=== PATIENT | female | born 1940 | race Two or more races ===

== ENCOUNTER 2019-04-24 09:13 | Outpatient (CLI) | payer OTHER ==
[~2019-04-24 09:13] MED LIST: NABUMETONE500 MG PO; PERCOCET 5/3251 TAB PO; SYNTHROID88 MCG
== END 2019-04-24 09:24 | disposition home or self-care (01) ==
LOC: LAB 09:13
DX: D51.1 Vitamin B12 deficiency anemia due to selective vitamin B12 malabsorption with proteinuria (principal); D51.3 Other dietary vitamin B12 deficiency anemia; I10 Essential (primary) hypertension; E03.8 Other specified hypothyroidism; E78.2 Mixed hyperlipidemia; K55.21 Angiodysplasia of colon with hemorrhage; D50.8 Other iron deficiency anemias; D51.8 Other vitamin B12 deficiency anemias; D51.0 Vitamin B12 deficiency anemia due to intrinsic factor deficiency; D68.8 Other specified coagulation defects; E06.3 Autoimmune thyroiditis

== ENCOUNTER 2019-07-03 07:52 | Outpatient (CLI) | payer OTHER | END 2019-07-03 07:58 | disposition home or self-care (01) | LOC: LAB 07:52 | DX: D51.1 Vitamin B12 deficiency anemia due to selective vitamin B12 malabsorption with proteinuria (principal); D51.3 Other dietary vitamin B12 deficiency anemia; D51.0 Vitamin B12 deficiency anemia due to intrinsic factor deficiency; I10 Essential (primary) hypertension; E03.8 Other specified hypothyroidism; E78.2 Mixed hyperlipidemia; K55.21 Angiodysplasia of colon with hemorrhage; D50.8 Other iron deficiency anemias; D51.8 Other vitamin B12 deficiency anemias ==

== ENCOUNTER 2025-02-08 09:13 | Inpatient (IN) | payer OTHER ==
[~2025-02-08] VITALS: Ht 149.9 cm; Wt 63.5 kg
[~2025-02-08 09:13] MED LIST changes: +B-121000 MC1 PO; +BENICAR40 MG PO; +BONIVA3 MG/3 ML IV; +CALTRATE 600 +1 EACH PO; +HYOSCYAMINE0.125 M1 SL; +INTEGRA F CAPS1 EACH PO; +LEVO-T50 MCG PO; +NEURIN; +NORVASC2.5 MG PO; +PEPCID AC20 MG PO; +TRAM1TAB98 PO; +VITAMIN D35000 UNI2 PO
[2025-02-08 09:16] VITALS: BP 145/60
[2025-02-08 09:30] LABS: BASO % 0.4 % (0.1-1.2); EOS # 0.44 (0.04-0.54); EOS % 6.4 % (0.7-7.0); LYMPH # 2.12 (1.18-3.74); LYMPH % 31.0 % (19.3-53.1); MEAN PLATELET VOLUME 9.60 fl (9.4-12.4); MONO # 0.85 (0.24-0.82); NEUT # 3.36 (1.56-6.13); NEUT % 49.4 % (34.0-71.1); RED CELL DISTRIBUTION WIDTH 13.9 % (11.6-14.4)
[2025-02-08 09:34] LABS: MONO % 12.4 % (4.7-12.5); URINE APPEARANCE Clear; URINE BILIRRUBIN Negative (NEGATIVE); URINE BLOOD Negative; URINE COLOR Yellow; URINE GLUCOSE Negative (NEGATIVE); URINE KETONE Negative (NEGATIVE); URINE LEUKOCYTE Trace; URINE NITRATE Negative; URINE PROTEIN Negative (NEGATIVE); URINE UROBILINOGEN 0.2 E.U./dl
[2025-02-08 09:38] LABS: URINE BACTERIA 534.9 uL (0.0-1933); URINE EPITHELIAL CELLS 50.2 uL (0.0-38.8); URINE WBC 8.9 uL (0.0-23.2)
[2025-02-08 09:41] LABS: URINE CAST 0.00 uL (0.0-1.40); URINE RBC 1.0 uL (0.0-20.8)
[2025-02-08 09:50] LABS: INR 0.94
[2025-02-08 09:57] VITALS: BP 104/58
[2025-02-08 10:46] LABS: ALT/SGPT 24.0 U/L (12-78); AST/SGOT 25.0 U/L (15-37); BILIRUBIN TOTAL 0.47 mg/dL (0.3-1.2); BUN CREA RATIO 27.0 (7.0-25.0); CREATININE SERUM 0.95 mg/dL (0.55-1.02); GFR 55.91; GLOBULINA 3.3 G/DL (2.4-3.5); GLUCOSE FASTING 100.0 mg/dL (65-100); OSMOLALITY SERUM 282.0 MOSM/KG (275-295)
[2025-02-16] MEDS ORDERED: CEFAZOLIN SODIUM 1,000 MG VIAL IV ONE (10:45)
[2025-02-16] MEDS ORDERED: TRANEXAMIC ACID 100MG/1ML (1000MG) AMPUL IV ONE (10:45)
[2025-02-16] MEDS ORDERED: ONDANSETRON HCL 2 MG/ML VIAL IV PRN (12:15)
[2025-02-16] MEDS ORDERED: MORPHINE SULFATE 4 MG/ML VIAL IV ONE (12:40)
[2025-02-16] MEDS ORDERED: OxyCODONE HCL 5 MG TABLET (ROXICODONE) PO SCH (13:00)
[2025-02-16 14:19] VITALS: BP 104/58
[2025-02-16 17:06] VITALS: BP 130/66
[2025-02-16] MEDS ORDERED: MORPHINE SULFATE 4 MG/ML CARTRIDGE IV SCH (18:00)
[2025-02-16] MEDS ORDERED: CEFAZOLIN SODIUM 1,000 MG VIAL IV SCH (18:00)
[2025-02-16] MEDS ORDERED: ORPHENADRINE CITRATE 100 MG TABLET PO SCH (21:00)
[2025-02-16] MEDS ORDERED: GABAPENTIN 100 MG CAPSULE PO SCH (21:00)
[2025-02-16] MEDS ORDERED: ENALAPRILAT DIHYDRATE 1.25 MG/ML VIAL IV PRN (21:45)
[2025-02-17 00:13] VITALS: BP 126/68
[2025-02-17 01:14] LABS: BASO % 0.1 % (0.1-1.2); EOS # 0.12 (0.04-0.54); EOS % 1.2 % (0.7-7.0); LYMPH # 1.65 (1.18-3.74); LYMPH % 17.0 % (19.3-53.1); MEAN PLATELET VOLUME 9.60 fl (9.4-12.4); MONO # 1.16 (0.24-0.82); MONO % 11.9 % (4.7-12.5); NEUT # 6.75 (1.56-6.13); NEUT % 69.5 % (34.0-71.1); RED CELL DISTRIBUTION WIDTH 13.8 % (11.6-14.4)
[2025-02-17] MEDS ORDERED: LEVOTHYROXINE SODIUM 50 MCG TABLET PO SCH (06:00)
[2025-02-17 08:00] VITALS: BP 130/80
[2025-02-17] MEDS ORDERED: RIVAROXABAN 10 MG TAB PO SCH (09:00)
[2025-02-17] MEDS ORDERED: AMLODIPINE BESYLATE 2.5 MG TABLET PO SCH (09:00)
[2025-02-17] MEDS ORDERED: SOD FERRIC GLUC COMPLX/SUCROSE 62.5 MG/5 ML AMPUL IV NR (12:00)
[2025-02-17] MEDS ORDERED: Cyanocobalamin/Mecobalamin 1 TAB.SL SL NR (14:00)
[2025-02-17 14:44] LABS: COVID-19 AG NEGATIVE (NEGATIVE)
[2025-02-17 16:00] VITALS: BP 152/64; O2SAT 96
[2025-02-18 02:00] VITALS: BP 138/69; O2SAT 97
[2025-02-18 08:00] VITALS: BP 151/80; O2SAT 97
[2025-02-18] MEDS ORDERED: Cyanocobalamin/Mecobalamin 1 TAB.SL SL SCH (09:00)
[2025-02-18] MEDS ORDERED: SOD FERRIC GLUC COMPLX/SUCROSE 62.5 MG/5 ML AMPUL IV SCH (09:00)
[2025-02-18 16:00] VITALS: BP 144/75; O2SAT 97
[2025-02-19 00:54] VITALS: BP 120/71; O2SAT 96
[2025-02-19 03:05] LABS: BASO % 0.3 % (0.1-1.2); EOS # 0.59 (0.04-0.54); EOS % 5.6 % (0.7-7.0); LYMPH # 2.08 (1.18-3.74); LYMPH % 19.9 % (19.3-53.1); MEAN PLATELET VOLUME 9.40 fl (9.4-12.4); MONO # 1.63 (0.24-0.82); NEUT # 6.04 (1.56-6.13); NEUT % 57.6 % (34.0-71.1); RED CELL DISTRIBUTION WIDTH 13.7 % (11.6-14.4)
[2025-02-19 03:08] LABS: MONO % 15.6 % (4.7-12.5)
[2025-02-19 08:00] VITALS: BP 149/70; O2SAT 96
[2025-02-19] MEDS ORDERED: NORFLEX100MG PO (12:02)
[2025-02-19] MEDS ORDERED: PERCOCET 5-3251 EACH PO (12:02)
[2025-02-19] MEDS ORDERED: XARELTO10 MG PO (12:02)
[2025-02-19] MEDS ORDERED: GABAPENTIN100 MG PO (12:02)
== END 2025-02-19 15:44 | DRG 470 ==
LOC: O/R 02-16 05:29 → OB/GYN 02-16 05:29 → SURH 02-16 07:00 → OB/GYN 02-16 14:20 → SURG 02-17 13:20 → SURH 02-17 14:34
PROVIDERS: ADMIT Orthopaedic Surgery; ATTEND Orthopaedic Surgery
PROC: 0SRC0JZ Replacement of Right Knee Joint with Synthetic Substitute, Open Approach (ICD-10-PCS; principal; 2025-02-16 07:00)
PROC: 30233N1 Transfusion of Nonautologous Red Blood Cells into Peripheral Vein, Percutaneous Approach (ICD-10-PCS; 2025-02-17)
DX: M17.11 Unilateral primary osteoarthritis, right knee (principal); D62 Acute posthemorrhagic anemia; M85.661 Other cyst of bone, right lower leg; I10 Essential (primary) hypertension